=== PATIENT | female | born 1950 | race Caucasian/White ===

== ENCOUNTER 2020-03-19 05:09 | Emergency (ER) | payer MEDICARE ==
[~2020-03-19] VITALS: Ht 162.6 cm; Wt 61.2 kg
[2020-03-19] MEDS ORDERED: PREDNISONE20 MG PO (06:25)
--- NOTE | 2020-03-19 06:33 | Emergency Department Note ---
History of Present Illnes History of Present Illness Chief Complaint: General Medicine Complaints History of Present Illness This is a 69 year old female with no past medical history arrives to the ED with a rash over her right arm. Patient states she was exposed to poison [place] and her sister has a same symptoms. 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 Any updates have been documented here. Past Medical History Past Medical History: None Past Surgical History: Hysterectomy Social History Smoking Cessation: Current some day smoker Counseling Performed: Yes Alcohol Use: None Any Illegal Drug Use: No Physically hurt or threatened: No Review of Systems Review of Systems Constitutional: Reports no symptoms EENTM: Reports no symptoms Cardiovascular: Reports no symptoms Respiratory: Reports no symptoms Gastrointestinal: Reports no symptoms Genitourinary: Reports no symptoms Musculoskeletal: Reports no symptoms Integumentary: Reports as per HPI, Reports rash Neurological: Reports no symptoms Psychological: Reports no symptoms Endocrine: Reports no symptoms Hematological/Lymphatic: Reports no symptoms Physical Exam Physical Exam CONSTITUTIONAL Constitutional: Present well-developed, Present well-nourished HENT HENT: Present normocephalic, Present atraumatic, Present oropharynx clear/moist, Present nose normal HENT L/R: Present left ext ear normal, Present right ext ear normal EYES Eyes: Reports PERRL, Reports conjunctivae normal NECK Neck: Present ROM normal PULMONARY Pulmonary: Present effort normal, Present breath sounds normal CARDIOVASCULAR Cardiovascular: Present regular rhythm, Present heart sounds normal, Present capillary refill normal, Present normal rate GASTROINTESTINAL Abdominal: Present soft, Present nontender, Present bowel sounds normal GENITOURINARY Genitourinary: Present exam deferred SKIN Skin: Present warm, Present other (raised rash noted over right antecubital area, mild erythema, no cellulitis, blanches to touch) MUSCULOSKELETAL Musculoskeletal: Present ROM normal NEUROLOGICAL Neurological: Present alert, Present oriented x 3, Present no gross motor or sensory deficits PSYCHOLOGICAL Psychological: Present mood/affect normal, Present judgement normal Assessment & Plan Medical Decision Making MDM -year-old female arrives to ED with rash over her right antecubital area, no concerns of Teran-Constantino staphylococcal skin syndrome or toxic epidermal necrosis. Patient discharged home on prednisone, stable for discharge. Assessment & Plan Final Impression: (1) Allergic dermatitis due to poison [place] Depart Disposition: HOME, SELF-skilled nursing Meds Active Scripts Prednisone (PREDNISONE) 20 Mg Tab, 40 MG PO DAILY, #7 TAB Prov:KAROL PANDEY DO 03/19/20 KAROL PANDEY DO Mar 19, 2020 06:33
== END 2020-03-19 06:49 | disposition home or self-care (01) ==
LOC: ER 06:30
DX: L23.7 Allergic contact dermatitis due to plants, except food (principal); F17.210 Nicotine dependence, cigarettes, uncomplicated
CPT/HCPCS: 99282